=== PATIENT | female | born 1980 | race Caucasian/White ===

== ENCOUNTER 2020-01-17 14:58 | Emergency (ER) | payer BC ==
[~2020-01-17] VITALS: Ht 165.1 cm; Wt 98.9 kg
[~2020-01-17 14:58] MED LIST: IBUPROFEN 400400 M2 PO; LORTAB 5-325 M1 EACH PO; NO RX
[2020-01-17] MEDS ORDERED: TESSALON PERLE100 M1 PO (16:25)
[2020-01-17] MEDS ORDERED: PREDNISONE 10 M10 MG PO (16:25)
[2020-01-17] MEDS ORDERED: PROAIR HFA8.5 GM INH (16:25)
[2020-01-17 16:32] VITALS: BP 111/82
== END 2020-01-17 16:33 | disposition home or self-care (01) ==
LOC: ER 14:58
DX: J10.1 Influenza due to other identified influenza virus with other respiratory manifestations (principal); H92.02 Otalgia, left ear; R07.81 Pleurodynia; K21.9 Gastro-esophageal reflux disease without esophagitis; Z90.710 Acquired absence of both cervix and uterus; Z87.442 Personal history of urinary calculi; Z87.891 Personal history of nicotine dependence